=== PATIENT | male | born 1980 | race Caucasian/White ===

== ENCOUNTER 2020-08-13 08:00 | Outpatient (CLI) | payer OTHER ==
[2020-08-13 17:14] LABS: BASOPHILS % (AUTO) 0.6 %; EOSINOPHILS # (AUTO) 0.1 10^3/uL (0.0-0.7); EOSINOPHILS % (AUTO) 2.3 %; HGB - HEMOGLOBIN 14.5 g/dL (14.0-18.0); LYMPHOCYTES % (AUTO) 29.4 %; MEAN CORPUSCULAR HEMOGLOBIN 32.7 pg (27.0-31.0); MEAN CORPUSCULAR HGB CONC 35.3 g/dL (32.0-36.0); MEAN CORPUSCULAR VOLUME 92.6 fL (80.0-94.0); MEAN PLATELET VOLUME 9.9 fL (7.4-11.4); MONOCYTES # (AUTO) 0.5 10^3/uL (0.0-1.0); MONOCYTES % (AUTO) 13.1 %; NEUTROPHILS # (AUTO) 1.9 10^3/uL (1.5-6.6); NEUTROPHILS % (AUTO) 54.6 %; PLT - PLATELET COUNT 152 10^3/uL (130-450); RED BLOOD COUNT 4.44 10^6/uL (4.70-6.10); RED CELL DISTRIBUTION WIDTH 12.4 % (12.0-15.0); WHITE BLOOD COUNT 3.4 x10^3/uL (4.8-10.8)
[2020-08-13 17:41] LABS: ALBUMIN 3.1 g/dL (3.2-5.5); ALBUMIN/GLOBULIN RATIO 1.2 (1.0-2.2); CALCIUM 7.9 mg/dL (8.5-10.3); CREATININE 0.9 mg/dL (0.6-1.2); TOTAL PROTEIN 5.6 g/dL (6.7-8.2)
== END 2020-08-13 23:59 | disposition home or self-care (01) ==
LOC: LAB.S 08:00
PROVIDERS: ATTEND Physician Assistant Medical
DX: R61 Generalized hyperhidrosis (principal); R53.83 Other fatigue; Z20.828 Contact with and (suspected) exposure to other viral communicable diseases
CPT/HCPCS: 36415; 80053; 84443; 85025; 87275; 87276

== ENCOUNTER 2020-08-17 12:58 | Outpatient (CLI) | payer OTHER ==
[2020-08-18 13:29] LABS: HEPATITIS B SURFACE ANTIGEN NON-REACTIVE (NON-REACTIVE); HEPATITIS C ANTIBODY NON-REACTIVE (NON-REACTIVE)
== END 2020-08-17 12:59 | disposition home or self-care (01) ==
LOC: LAB.S 12:58
PROVIDERS: ATTEND Physician Assistant Medical
DX: R94.5 Abnormal results of liver function studies (principal); R53.83 Other fatigue; R61 Generalized hyperhidrosis
CPT/HCPCS: 36415; 86709; 86803; 87340

== ENCOUNTER 2020-08-18 17:19 | Emergency (ER) | payer OTHER ==
[2020-08-18 17:51] LABS: BASOPHILS % (AUTO) 0.7 %; EOSINOPHILS % (AUTO) 0.5 %; HGB - HEMOGLOBIN 15.4 g/dL (14.0-18.0); LYMPHOCYTES # (AUTO) 0.9 10^3/uL (1.5-3.5); LYMPHOCYTES % (AUTO) 22.2 %; MEAN CORPUSCULAR HEMOGLOBIN 31.6 pg (27.0-31.0); MEAN CORPUSCULAR HGB CONC 33.3 g/dL (32.0-36.0); MEAN CORPUSCULAR VOLUME 94.9 fL (80.0-94.0); MEAN PLATELET VOLUME 8.9 fL (7.4-11.4); MONOCYTES # (AUTO) 0.8 10^3/uL (0.0-1.0); MONOCYTES % (AUTO) 19.1 %; NEUTROPHILS # (AUTO) 2.4 10^3/uL (1.5-6.6); NEUTROPHILS % (AUTO) 57.3 %; PLT - PLATELET COUNT 207 10^3/uL (130-450); RED BLOOD COUNT 4.88 10^6/uL (4.70-6.10); RED CELL DISTRIBUTION WIDTH 13.1 % (12.0-15.0); WHITE BLOOD COUNT 4.2 x10^3/uL (4.8-10.8)
[2020-08-18 17:57] LABS: INR 1.5 (0.8-1.2); PT - PROTHROMBIN TIME 16.1 secs (9.9-12.6)
--- NOTE | 2020-08-18 17:59 | ED Physician Documentation ---
History of Present Illness - Stated complaint Stated Complaint: FEVER,ABD PX - Chief complaint Chief Complaint: Abd Pain - History obtained from History obtained from: Patient, Family - History of Present Illness Timing: Prior to arrival - Additonal information Additional information: 40-year-old male who was requested to come to the emergency department by his primary care physician for evaluation of his hepatitis A. About 10 days ago began to develop significant fatigue, malais,e low-grade fevers, have myalgias and night sweats. Initially he presented to an urgent care clinic where influenza and Covid testing was negative. However he failed to improve and his primary care doctor ordered hepatitis testing and he did test positive for hepatitis A. He denies any recent travel but did eat out a taco truck about a week and a half before his symptoms began. He reports mild headache, no dysuria urgency or frequency. He denies nausea or vomiting. He reports that he has pain in his epigastrium and has lost his appetite. Both he and his are very worried as he has begun to develop a mild jaundice. He denies any pertinent past medical history. No history of injection drug use. He is a social drinker. He takes no prescribed medications. Review of Systems Constitutional: reports: Fever, Myalgias, Fatigue, Sweats Eyes: reports: Reviewed and negative Ears: reports: Reviewed and negative Nose: reports: Reviewed and negative Throat: reports: Reviewed and negative Cardiac: denies: Chest pain / pressure, Palpitations Respiratory: denies: Dyspnea, Cough, Hemoptysis GI: reports: Abdominal Pain. denies: Nausea, Vomiting, Constipation, Diarrhea, Hematemesis, Bloody / black stool : reports: Other (dark colored urine). denies: Dysuria, Frequency Skin: denies: Rash Musculoskeletal: denies: Joint pain, Extremity swelling Neurologic: denies: Generalized weakness, Near syncope, Syncope, Seizure, Altered mental status, Headache, LOC PD PAST MEDICAL HISTORY - Present Medications Home Medications: Ambulatory Orders Medication Instructions Recorded Confirmed No Known Home Medications 08/18/20 08/18/20 - Allergies Allergies/Adverse Reactions: Allergies Allergy/AdvReac Type Severity Reaction Status Date / Time No Known Drug Allergies Allergy Verified 08/18/20 17:46 PD ED PE EXPANDED - General General: Alert, No acute distress, Well developed/nourished - HEENT HEENT: PERRL, EOMI - Eyes Eyes: Scleral icterus (mild) - Neck Neck: Supple w/out meningeal sx. No: Adenopathy - Cardiac Cardiac: Regular Rate, Regular Rhythm, Normal pulses, Radial strong equal, Cap refill < 2 sec - Respiratory Respiratory: Clear to ausultation vandana. No: Distress, Labored, Accessory mm use - Abdomen Abdomen: Normal Bowel sounds, Epigastric (Very mild epigastric tenderness without rebound or guarding. No hepatomegaly noted on exam. No right upper quadrant tenderness. Negative Dyer's.). No: Rebound, Guarding, Hepatomegaly - Derm Derm: Jaundiced (mild jaundice). No: Rash - Extremities Extremities: Normal. No: Pedal edema bilateral, Right calf TTP/cord, Left calf TTP/cord - Neuro Neuro: Alert and Oriented X 3, CNII-XII intact, Normal gait, Normal finger nose, Normal speech - GCS Eye Opening: Spontaneous Motor: Obeys Commands Verbal: Oriented Total: 15 Results - Vitals Vitals: Vital Signs - 24 hr 08/18/20 17:22 Temperature 36.8 C Heart Rate 56 L Respiratory 16 Rate Blood Pressure 132/74 H O2 Saturation 99 Oxygen O2 Source Room air - Labs Labs: Laboratory Tests 08/18/20 08/18/20 08/18/20 17:40 17:40 17:40 WBC 4.2 L RBC 4.88 Hgb 15.4 Hct 46.3 MCV 94.9 H MCH 31.6 H MCHC 33.3 RDW 13.1 Plt Count 207 MPV 8.9 Neut # (Auto) 2.4 Lymph # (Auto) 0.9 L Iron # (Auto) 0.8 Eos # (Auto) 0.0 Baso # (Auto) 0.0 Absolute Nucleated RBC 0.00 Nucleated RBC % 0.0 PT 16.1 H INR 1.5 H APTT 29.5 Sodium 135 Potassium 4.1 Chloride 98 L Carbon Dioxide 28 Anion Gap 9.0 BUN 8 Creatinine 0.8 Estimated GFR (MDRD) 107 Glucose 94 Lactic Acid Calcium 8.1 L Total Bilirubin 6.3 H AST 1796 H ALT 3828 H Alkaline Phosphatase 191 H Total Protein 6.3 L Albumin 3.3 Globulin 3.0 Albumin/Globulin Ratio 1.1 Lipase 62 H 08/18/20 17:40 WBC RBC Hgb Hct MCV MCH MCHC RDW Plt Count MPV Neut # (Auto) Lymph # (Auto) Iron # (Auto) Eos # (Auto) Baso # (Auto) Absolute Nucleated RBC Nucleated RBC % PT INR APTT Sodium Potassium Chloride Carbon Dioxide Anion Gap BUN Creatinine Estimated GFR (MDRD) Glucose Lactic Acid 0.9 Calcium Total Bilirubin AST ALT Alkaline Phosphatase Total Protein Albumin Globulin Albumin/Globulin Ratio Lipase PD MEDICAL DECISION MAKING - ED course Complexity details: reviewed results, d/w patient, d/w family ED course: -year-old male was sent to the emergency department for reevaluation of his recent diagnosis of hepatitis A. For about 10 days he has had malaise fatigue night sweats and lack of appetite. He has begun to develop mild jaundice. On exam though mildly jaundiced he does otherwise appear well. He has no fever here his vital signs are normal. His abdominal exam was relatively reassuring. No hepatomegaly was appreciated. Only mild epigastric tenderness without guarding or rebound. He has no focal neuro findings consistent with encephalitis. Abdominal imaging defered - On laboratory exam we do note a marked rise in his liver function test. His T bili is now 6.3. However this is the expected course with hepatitis A. I did spend an extensive amount of time with the patient and his in the room discussing hepatitis A. We discussed this typically self-limiting and there is no treatment other than supportive care. He will continue to follow-up with his primary care provider. I have encouraged fluids at home for hydration. Emergent return precautions discussed for worsening fevers, suddenly severe abdominal pain syncope bloody stools. Departure - Departure Disposition: 01 Home, Self Care Clinical Impression: Hepatitis A Qualifiers: Hepatic coma status: without hepatic coma Qualified Code(s): B15.9 - Hepatitis A without hepatic coma Condition: Stable Record reviewed to determine appropriate education?: Yes Instructions: Hepatitis A Infec Follow-Up: Andrei Johnson MD [Primary Care Provider] - Within 3 Days Comments: I do hope that you are feeling better soon. However the labs today are consistent with the natural course of hepatitis A infection. Unfortunately there is no medication or treatment that makes this better. Typically the symptoms persist for 2 to 4 weeks before they begin to improve. I do recommend frequent sips of liquid, broth or water at home to maintain hydration. I would also recommend that you eat small bits of food or snacks frequently. If at any point you develop suddenly severe abdominal pain, noticed that you have bruising or bleeding in your gums, have black or tarry stools, you are acting abnormally or become excessively sleepy please return immediately to the emergency department. Schedule close follow-up with your primary care provider for next week to discuss longer-term monitoring of your hepatitis A.
[2020-08-18 18:04] LABS: PARTIAL THROMBOPLASTIN TIME 29.5 secs (24.9-33.3)
[2020-08-18 18:46] LABS: ALBUMIN 3.3 g/dL (3.2-5.5); ALBUMIN/GLOBULIN RATIO 1.1 (1.0-2.2); BILIRUBIN,TOTAL 6.3 mg/dL (0.2-1.0); CALCIUM 8.1 mg/dL (8.5-10.3); CREATININE 0.8 mg/dL (0.6-1.2); TOTAL PROTEIN 6.3 g/dL (6.7-8.2)
[2020-08-18 19:05] VITALS: BP 124/47
== END 2020-08-18 19:14 | disposition home or self-care (01) ==
LOC: ED 17:19
DX: B15.9 Hepatitis A without hepatic coma (principal)
CPT/HCPCS: 36415; 80053; 83605; 83690; 85025; 85610; 85730; 87040; 99283; 99284

== ENCOUNTER 2020-08-19 12:13 | Emergency (ER) | payer OTHER ==
[2020-08-19 13:01] LABS: GLUCOSE, URINE (UA) NEGATIVE (NEGATIVE); KETONES,URINE (UA) NEGATIVE (NEGATIVE); LEUKOCYTE ESTERASE, URINE NEGATIVE (NEGATIVE); NITRITE,URINE NEGATIVE (NEGATIVE); OCCULT BLOOD,URINE NEGATIVE (NEGATIVE); PH,URINE 7.5 PH (5.0-7.5); PROTEIN,URINE NEGATIVE (NEGATIVE); UROBILINOGEN,URINE 0.2 (NORMAL) E.U./dL (NORMAL)
[2020-08-19] MEDS ORDERED: SODIUM CHLORIDE 0.9% 1,000 ML IV STA ×2 (13:01→15:10)
--- NOTE | 2020-08-19 13:01 | ED Physician Documentation ---
History of Present Illness - Stated complaint Stated Complaint: PAIN - Chief complaint Chief Complaint: Abd Pain - History obtained from History obtained from: Patient - History of Present Illness Timing: How many days ago (12) Pain level max: 3 Pain level now: 2 - Additonal information Additional information: Patient is a 40-year-old male who was diagnosed with hepatitis a approximately a week ago. He states he has had symptoms for about 2 weeks. He states that he was coming in for an ultrasound today, but is generally feeling weak and unwell. Came to the emergency department instead. Nothing makes it better or worse. Had a temperature of 100.5 today. No nausea or vomiting. No diarrhea or constipation. Was seen here last night for elevated LFTs. Review of Systems Ten Systems: 10 systems reviewed and negative Constitutional: reports: Fever. denies: Chills Throat: denies: Sore throat Cardiac: denies: Chest pain / pressure Respiratory: denies: Dyspnea, Cough GI: reports: Nausea, Vomiting : denies: Dysuria, Frequency, Hesitancy, Now EGA Skin: denies: Rash Musculoskeletal: denies: Neck pain, Back pain Neurologic: denies: Headache PD PAST MEDICAL HISTORY - Past Medical History Past Medical History: No - Past Surgical History Past Surgical History: No - Present Medications Home Medications: Ambulatory Orders Medication Instructions Recorded Confirmed Oxycodone HCl 5 - 10 mg PO Q6H PRN #20 tablet 08/19/20 - Allergies Allergies/Adverse Reactions: Allergies Allergy/AdvReac Type Severity Reaction Status Date / Time No Known Drug Allergies Allergy Verified 08/18/20 17:46 - Social History Does the pt smoke?: No Smoking Status: Never smoker Does the pt drink ETOH?: Yes Does the pt have substance abuse?: No PD ED PE NORMAL - Vitals Vital signs reviewed: Yes - General General: Alert and oriented X 3, No acute distress, Other (mild jaundice) - HEENT HEENT: PERRL - Neck Neck: Supple, no meningeal sign - Cardiac Cardiac: RRR, Strong equal pulses - Respiratory Respiratory: No respiratory distress, Clear bilaterally - Abdomen Abdomen: Soft, Non tender, Non distended - Derm Derm: Warm and dry, No rash - Extremities Extremities: No edema, No calf tenderness / cord - Neuro Neuro: Alert and oriented X 3 - Psych Psych: Normal mood, Normal affect Results - Vitals Vitals: Vital Signs - 24 hr 08/19/20 08/19/20 12:31 16:23 Temperature 36.9 C 37.6 C H Heart Rate 62 66 Respiratory 18 16 Rate Blood Pressure 107/53 L 102/50 L O2 Saturation 98 99 Oxygen O2 Source Room air - Labs Labs: Laboratory Tests 08/19/20 08/19/20 08/19/20 12:45 13:05 13:05 WBC 4.4 L RBC 4.60 L Hgb 14.6 Hct 43.1 MCV 93.7 MCH 31.7 H MCHC 33.9 RDW 12.9 Plt Count 199 MPV 9.3 Neut # (Auto) 2.5 Lymph # (Auto) 1.1 L [place] # (Auto) 0.8 Eos # (Auto) 0.0 Baso # (Auto) 0.0 Absolute Nucleated RBC 0.00 Nucleated RBC % 0.0 PT INR APTT Sodium 135 Potassium 4.4 Chloride 99 L Carbon Dioxide 27 Anion Gap 9.0 BUN 10 Creatinine 0.7 Estimated GFR (MDRD) 124 Glucose 92 Calcium 8.1 L Total Bilirubin 8.1 H Direct Bilirubin 5.3 H AST 2194 H ALT 4052 H Alkaline Phosphatase 173 H Total Protein 5.8 L Albumin 2.9 L Globulin 2.9 Albumin/Globulin Ratio 1.0 Lipase 46 Urine Color DARK YELLOW Urine Clarity CLEAR Urine pH 7.5 Ur Specific [place] 1.020 Urine Protein NEGATIVE Urine Glucose (UA) NEGATIVE Urine Ketones NEGATIVE Urine Occult Blood NEGATIVE Urine Nitrite NEGATIVE Urine Bilirubin LARGE H Urine Urobilinogen 0.2 (NORMAL) Ur Leukocyte Esterase NEGATIVE Ur Microscopic Review NOT INDICATED Urine Culture Comments NOT INDICATED 08/19/20 13:05 WBC RBC Hgb Hct MCV MCH MCHC RDW Plt Count MPV Neut # (Auto) Lymph # (Auto) [place] # (Auto) Eos # (Auto) Baso # (Auto) Absolute Nucleated RBC Nucleated RBC % PT 17.5 H INR 1.6 H APTT 30.7 Sodium Potassium Chloride Carbon Dioxide Anion Gap BUN Creatinine Estimated GFR (MDRD) Glucose Calcium Total Bilirubin Direct Bilirubin AST ALT Alkaline Phosphatase Total Protein Albumin Globulin Albumin/Globulin Ratio Lipase Urine Color Urine Clarity Urine pH Ur Specific [place] Urine Protein Urine Glucose (UA) Urine Ketones Urine Occult Blood Urine Nitrite Urine Bilirubin Urine Urobilinogen Ur Leukocyte Esterase Ur Microscopic Review Urine Culture Comments - Rads (name of study) RUQ US Radiology: Prelim report reviewed, EMP read contemporaneously, See rad report CT abd/pelvis Radiology: Prelim report reviewed, EMP read contemporaneously, See rad report (The gallbladder is contracted. However, there is marked gallbladder wall thickening and edema. Consider acute cholecystitis. Comment: Nuclear medicine HIDA study may be helpful. ) PD MEDICAL DECISION MAKING - ED course Complexity details: reviewed results, re-evaluated patient, considered differential, d/w patient, d/w family, d/w field sales consultant ED course: 40-year-old male with hepatitis A. He has increasing liver function tests. Did have a slight fever this morning. No significant tenderness on exam. Pain well controlled in the emergency department. Feels better after IV fluids and is tolerating p.o. without difficulty. Discussed the case with Dr[facility] Mcmahan[facility] who states that she has not cared for many hepatitis A patients in the past, but has seen them observed for 1-2 nights in the hospital until LFTs trending down. She has no specific recommendations in this case. Recommend that I contact hepatology. I [facility], Dr. Colon, he recommends every other day outpatient lab draws. As long as the INR stays below 2 and the patient is well-appearing, the labs can be trended. If the INR is above 2, the patient develops more fevers or is worsening, reconsultation should be obtained. Discussed the case with NABIL Acosta who is on-call for Dr. Johnson, she will put labs in for Saturday for a blood draw. Patient is well-appearing, nontoxic. Afebrile here. Patient and family counseled regarding signs and symptoms for which I believe and urgent re-evaluation would be necessary. Patient with good understanding of and agreement to plan and is comfortable going home at this time This document was made in part using voice recognition software. While efforts are made to proofread this document, sound alike and grammatical errors may occur. Right upper quadrant ultrasound Sonographic appearance of the liver concerning for hepatitis. Starry nadeem and hypoechoic coarsened echotexture. Gallbladder is contracted limiting evaluation, however there appears to be gallbladder wall thickening and surrounding increased echogenicity, findings due to inflammatory change. Suspect intraluminal sludge. No biliary ductal dilatation is identified. No hydronephrosis of the right kidney Departure - Departure Disposition: Home, Self Care Clinical Impression: Hepatitis A Qualifiers: Hepatic coma status: without hepatic coma Qualified Code(s): B15.9 - Hepatitis A without hepatic coma Condition: Good Instructions: Hepatitis A Infec Follow-Up: Andrei Johnson MD [Primary Care Provider] - Within 3 Days Prescriptions: Oxycodone HCl 5 - 10 mg PO Q6H PRN #20 tablet PRN Reason: pain Comments: Return if you worsen including uncontrolled pain, worsening fevers or other new or worsening changes. You need to have your blood drawn every 2 days until your liver test start to improve. I spoke with Dr. Colon from hepatology today. You should have a CBC, PT with INR and CMP. I attempted to contact Dr. Johnson today, but he had already left the office for the day. Do not drink alcohol or drive while on narcotic pain medicine. Note that many narcotic pain relievers also contain tylenol/acetaminophen. Please ensure that your total dose of acetaminophen from all sources does not exceed 3 grams (3000mg) per day. You may constipated on this medication, take a stool softener such as "Colace" twice a day while you are on it. Also recommend a [id number] laxative such as senna or MiraLAX any day that you do not have a bowel movement. If you received narcotic pain medication in the emergency department, do not drive or operate machinery for the next 24 hours. Discharge Date/Time: 08/19/20 17:03
[2020-08-19 13:02] LABS: BILIRUBIN,URINE LARGE (NEGATIVE); CLARITY,URINE CLEAR (CLEAR); ICTOTEST,URINE POSITIVE
[2020-08-19 13:18] LABS: BASOPHILS % (AUTO) 0.5 %; EOSINOPHILS % (AUTO) 0.5 %; HGB - HEMOGLOBIN 14.6 g/dL (14.0-18.0); LYMPHOCYTES # (AUTO) 1.1 10^3/uL (1.5-3.5); LYMPHOCYTES % (AUTO) 25.3 %; MEAN CORPUSCULAR HEMOGLOBIN 31.7 pg (27.0-31.0); MEAN CORPUSCULAR HGB CONC 33.9 g/dL (32.0-36.0); MEAN CORPUSCULAR VOLUME 93.7 fL (80.0-94.0); MEAN PLATELET VOLUME 9.3 fL (7.4-11.4); MONOCYTES # (AUTO) 0.8 10^3/uL (0.0-1.0); MONOCYTES % (AUTO) 18.1 %; NEUTROPHILS # (AUTO) 2.5 10^3/uL (1.5-6.6); NEUTROPHILS % (AUTO) 55.4 %; PLT - PLATELET COUNT 199 10^3/uL (130-450); RED CELL DISTRIBUTION WIDTH 12.9 % (12.0-15.0); WHITE BLOOD COUNT 4.4 x10^3/uL (4.8-10.8)
[2020-08-19 13:24] LABS: INR 1.6 (0.8-1.2); PT - PROTHROMBIN TIME 17.5 secs (9.9-12.6)
[2020-08-19 13:31] LABS: PARTIAL THROMBOPLASTIN TIME 30.7 secs (24.9-33.3)
[2020-08-19 13:59] LABS: ALBUMIN 2.9 g/dL (3.2-5.5); BILIRUBIN,DIRECT 5.3 mg/dL (0.1-0.5); BILIRUBIN,TOTAL 8.1 mg/dL (0.2-1.0); CALCIUM 8.1 mg/dL (8.5-10.3); CREATININE 0.7 mg/dL (0.6-1.2); TOTAL PROTEIN 5.8 g/dL (6.7-8.2)
[2020-08-19] MEDS ORDERED: IOVERSOL 320 100 ML VIAL IVP ONE ×3 (14:07→15:58)
--- NOTE | 2020-08-19 15:39 | CT Report ---
PROCEDURE: Abdomen/Pelvis W INDICATIONS: abd pain, hep A CONTRAST: IV CONTRAST: Optiray 320 ml: 100 PO CONTRAST: *NO PO CONTRAST TECHNIQUE: After the administration of intravenous contrast, 5 mm thick sections acquired from the diaphragms to the symphysis. 5 mm thick coronal and sagittal reformats were acquired. For radiation dose reducti on, the following was used: automated exposure control, adjustment of mA and/or kV according to dieudonne ent size. COMPARISON: Right upper quadrant ultrasound dated 08/19/2020. FINDINGS: Image quality: Excellent. ABDOMEN: Lung bases: Lung bases are clear. Heart size is normal. Solid organs: Liver and spleen are normal in size and enhancement. Gallbladder is contracted. Howev er, there is marked gallbladder wall thickening and edema. Biliary system is non dilated. Pancreas enhances normally. No adrenal nodules. Kidneys demonstrate normal size and enhancement, without hyd ronephrosis. Peritoneum and bowel: Bowel loops demonstrate normal wall thickness and caliber. Small amount of chilango e fluid in the pelvis. Nodes and vessels: No retroperitoneal or mesenteric adenopathy by size criteria. Shotty periportal and periaortic adenopathy. Aorta and inferior vena cava are normal in size. Miscellaneous: No ventral hernias. PELVIS: Genitourinary: Bladder is decompressed. Miscellaneous: No inguinal hernias or adenopathy. Bones: No suspicious bony lesions. No vertebral body compression fractures. IMPRESSION: The gallbladder is contracted. However, there is marked gallbladder wall thickening and edema. Consider acute cholecystitis. Comment: Nuclear medicine HIDA study may be helpful. Reviewed by: Sanjay Guzmán MD on 08/19/2020 3:37 PM PDT Approved by: Sanjay Guzmán MD on 08/19/2020 3:37 PM PDT Station ID: [id number]
[2020-08-19] MEDS ORDERED: MORPHINE 2 MG/ML CARPUJECT IVP STA (15:43)
[2020-08-19 16:24] VITALS: BP 102/50
--- NOTE | 2020-08-20 10:45 | Ultrasound Report ---
PROCEDURE: Abdomen Limited INDICATIONS: RUQ pain, + hep A TECHNIQUE: Real-time scanning was performed of the abdominal and retroperitoneal organs, with image documentatio n. COMPARISON: None. FINDINGS: Liver: Normal size. Hypoechoic coarsened in echotexture. Increased conspicuity of the portal triads, starry nadeem appearance. Main portal vein demonstrates expected hepatopedal flow. Gallbladder: Contracted limiting evaluation. The gallbladder wall is thickened measuring approximatel y 7 mm. There appears to be sludge within the gallbladder lumen. Increased echogenicity surrounding t he gallbladder. Negative sonographic Dyer sign. Biliary ducts: Intrahepatic bile ducts are non-dilated. Extrahepatic bile duct caliber measures 2 m m. Normal is 6-7 mm or less in diameter, or 10 mm or less post-cholecystectomy. Pancreas: Visualized portions of the pancreas are sonographically normal. Right kidney: Measures 11 cm. Cortex 1.37 m. No hydronephrosis. IMPRESSION: 1. Sonographic appearance of the liver is concerning for hepatitis. Starry nadeem and hypoechoic coarsen ed echotexture. 2. Gallbladder is contracted limiting evaluation. However, there appears to be a bladder wall thicken ing and surrounding increased echogenicity. Findings could be due to inflammatory change. Suspect int raluminal sludge. 3. No biliary ductal dilatation is identified. 4. No hydronephrosis of the right kidney. Reviewed by: Rashard Holder MD on 08/19/2020 2:09 PM PDT Approved by: Rashard Holder MD on 08/19/2020 2:09 PM PDT Station ID: [id number]
== END 2020-08-19 17:03 | disposition home or self-care (01) ==
LOC: ED 12:13
DX: B15.9 Hepatitis A without hepatic coma (principal); K82.9 Disease of gallbladder, unspecified
CPT/HCPCS: 36415; 74177; 76705; 80053; 81003; 82248; 83690; 85025; 85610; 85730; 96374; 99284; 99285; Q9967; 81001; 87086

== ENCOUNTER 2020-08-21 13:13 | Outpatient (CLI) | payer OTHER ==
[2020-08-21 13:53] LABS: BASOPHILS % (AUTO) 0.3 %; EOSINOPHILS % (AUTO) 0.9 %; HGB - HEMOGLOBIN 14.6 g/dL (14.0-18.0); LYMPHOCYTES # (AUTO) 1.1 10^3/uL (1.5-3.5); LYMPHOCYTES % (AUTO) 32.2 %; MEAN CORPUSCULAR HEMOGLOBIN 31.5 pg (27.0-31.0); MEAN CORPUSCULAR HGB CONC 33.1 g/dL (32.0-36.0); MEAN CORPUSCULAR VOLUME 95.2 fL (80.0-94.0); MONOCYTES # (AUTO) 0.5 10^3/uL (0.0-1.0); MONOCYTES % (AUTO) 13.7 %; NEUTROPHILS # (AUTO) 1.8 10^3/uL (1.5-6.6); NEUTROPHILS % (AUTO) 52.6 %; PLT - PLATELET COUNT 182 10^3/uL (130-450); RED BLOOD COUNT 4.63 10^6/uL (4.70-6.10); RED CELL DISTRIBUTION WIDTH 13.2 % (12.0-15.0); WHITE BLOOD COUNT 3.4 x10^3/uL (4.8-10.8)
[2020-08-21 14:02] LABS: INR 1.6 (0.8-1.2); PT - PROTHROMBIN TIME 17.2 secs (9.9-12.6)
[2020-08-21 14:34] LABS: ALBUMIN 2.5 g/dL (3.2-5.5); ALBUMIN/GLOBULIN RATIO 0.9 (1.0-2.2); BILIRUBIN,TOTAL 8.9 mg/dL (0.2-1.0); CALCIUM 7.8 mg/dL (8.5-10.3); CREATININE 0.8 mg/dL (0.6-1.2); TOTAL PROTEIN 5.4 g/dL (6.7-8.2)
== END 2020-08-21 13:14 | disposition home or self-care (01) ==
LOC: LAB 13:13
PROVIDERS: ATTEND Physician Assistant Medical
DX: B15.9 Hepatitis A without hepatic coma (principal)
CPT/HCPCS: 36415; 80053; 85025; 85610

== ENCOUNTER 2020-08-22 14:13 | Outpatient (CLI) | payer OTHER ==
[2020-08-22 14:39] LABS: BASOPHILS % (AUTO) 0.7 %; EOSINOPHILS % (AUTO) 0.3 %; HGB - HEMOGLOBIN 14.4 g/dL (14.0-18.0); LYMPHOCYTES # (AUTO) 0.9 10^3/uL (1.5-3.5); LYMPHOCYTES % (AUTO) 31.4 %; MEAN CORPUSCULAR HEMOGLOBIN 31.9 pg (27.0-31.0); MEAN CORPUSCULAR HGB CONC 33.6 g/dL (32.0-36.0); MEAN CORPUSCULAR VOLUME 95.1 fL (80.0-94.0); MEAN PLATELET VOLUME 8.7 fL (7.4-11.4); MONOCYTES # (AUTO) 0.4 10^3/uL (0.0-1.0); MONOCYTES % (AUTO) 12.7 %; NEUTROPHILS # (AUTO) 1.6 10^3/uL (1.5-6.6); NEUTROPHILS % (AUTO) 54.6 %; PLT - PLATELET COUNT 184 10^3/uL (130-450); RED BLOOD COUNT 4.51 10^6/uL (4.70-6.10); RED CELL DISTRIBUTION WIDTH 13.1 % (12.0-15.0)
[2020-08-22 15:02] LABS: INR 1.5 (0.8-1.2); PT - PROTHROMBIN TIME 16.3 secs (9.9-12.6)
[2020-08-22 15:09] LABS: ALBUMIN 2.5 g/dL (3.2-5.5); ALBUMIN/GLOBULIN RATIO 0.9 (1.0-2.2); BILIRUBIN,TOTAL 9.1 mg/dL (0.2-1.0); CALCIUM 7.9 mg/dL (8.5-10.3); CREATININE 0.9 mg/dL (0.6-1.2); TOTAL PROTEIN 5.4 g/dL (6.7-8.2)
[2020-08-22 15:19] LABS: PLATELET ESTIMATE, MANUAL NORMAL (130-450,000) (NORMAL); PLATELET MORPHOLOGY NORMAL APPEARANCE (NORMAL); RBC MORPHOLOGY (MULTIPLE) NORMAL APPEARANCE (NORMAL)
== END 2020-08-22 14:14 | disposition home or self-care (01) ==
LOC: LAB 14:13
PROVIDERS: ATTEND Internal Medicine
DX: B15.9 Hepatitis A without hepatic coma (principal); R17 Unspecified jaundice
CPT/HCPCS: 36415; 80053; 83690; 85025; 85610

== ENCOUNTER 2020-08-24 11:52 | Outpatient (CLI) | payer OTHER ==
[2020-08-24 12:10] LABS: BASOPHILS % (AUTO) 0.5 %; EOSINOPHILS % (AUTO) 0.8 %; HGB - HEMOGLOBIN 14.5 g/dL (14.0-18.0); LYMPHOCYTES # (AUTO) 1.1 10^3/uL (1.5-3.5); LYMPHOCYTES % (AUTO) 29.4 %; MEAN CORPUSCULAR HEMOGLOBIN 31.3 pg (27.0-31.0); MEAN CORPUSCULAR HGB CONC 32.9 g/dL (32.0-36.0); MONOCYTES # (AUTO) 0.4 10^3/uL (0.0-1.0); MONOCYTES % (AUTO) 11.9 %; NEUTROPHILS # (AUTO) 2.1 10^3/uL (1.5-6.6); NEUTROPHILS % (AUTO) 57.1 %; PLT - PLATELET COUNT 215 10^3/uL (130-450); RED BLOOD COUNT 4.64 10^6/uL (4.70-6.10); RED CELL DISTRIBUTION WIDTH 13.2 % (12.0-15.0); WHITE BLOOD COUNT 3.7 x10^3/uL (4.8-10.8)
[2020-08-24 12:16] LABS: INR 1.3 (0.8-1.2); PT - PROTHROMBIN TIME 13.9 secs (9.9-12.6)
[2020-08-24 12:31] LABS: ALBUMIN 2.7 g/dL (3.2-5.5); ALBUMIN/GLOBULIN RATIO 0.8 (1.0-2.2); BILIRUBIN,TOTAL 10.8 mg/dL (0.2-1.0); CALCIUM 8.6 mg/dL (8.5-10.3); TOTAL PROTEIN 6.2 g/dL (6.7-8.2)
== END 2020-08-24 11:53 | disposition home or self-care (01) ==
LOC: LAB 11:52
PROVIDERS: ATTEND Internal Medicine
DX: B15.9 Hepatitis A without hepatic coma (principal); R17 Unspecified jaundice
CPT/HCPCS: 36415; 80053; 85025; 85610

== ENCOUNTER 2020-08-25 16:49 | Outpatient (CLI) | payer OTHER ==
[2020-08-25] MEDS ORDERED: GADOBUTROL 7.5 MMOL/7.5 ML VIAL ONE (17:32)
[2020-08-25] MEDS ORDERED: GADOBUTROL 7.5 MMOL/7.5 ML VIAL IVP ONE (19:36)
--- NOTE | 2020-09-01 09:55 | MRI Report ---
PROCEDURE: Abdomen W/O INDICATIONS: GALLBLADDER SLUDGE CONTRAST: None administered TECHNIQUE: Multisequence multiplanar MR images of the abdomen obtained without the use of intravenous contrast. Specific sequences obtained include but are not limited to: coronal ultra fast spin echo, axial 2D sp oiled gradient echo in- and [id number]; axial breath-hold T2 fast spin echo. COMPARISON: CT abdomen and pelvis 08/19/2020 FINDINGS: Image quality: Excellent. Lung bases: No basal pleural effusions. Heart size is normal. Gallbladder and biliary system: The gallbladder is very tightly contracted, almost completely collaps ed. The gallbladder wall measures approximately 2-3 mm in thickness. There is small to moderate volum e pericholecystic fluid. There is no gallstone identified in the gallbladder or in the biliary ducts. No intrahepatic or extrahepatic biliary ductal dilatation. Liver and spleen: Borderline splenomegaly, measuring approximately 13.5 cm in greatest craniocaudal a nd transverse dimension. No findings of steatosis, cirrhosis, or liver mass. Patient hepatic and port al veins. Pancreas: Normal T1 signal intensity of the pancreas. No peripancreatic fluid or pancreatic ductal di latation. Kidneys and adrenal glands: No hydronephrosis or other significant finding of the kidneys. No adrenal gland nodule or mass. Nodes and vessels: No retroperitoneal or mesenteric adenopathy by size criteria. Aorta and inferior vena cava are normal in size. Bowel and peritoneum: Unenhanced bowel loops are normal in caliber. No free fluid. Bones and soft tissues: No ventral hernias. Bone marrow is normal in overall signal. IMPRESSION: Contracted gallbladder with small volume pericholecystic fluid. Findings would not be consistent with acute cholecystitis. The pericholecystic fluid could be related to the history of hepatitis, althoug h this is not definitive. Chronic cholecystitis could account for this finding, also. This would requ moises a nuclear medicine hepatobiliary scan to further evaluate with imaging, which would also evaluate for biliary/gallbladder dyskinesia. Reviewed by: Denys Beckman MD on 09/01/2020 9:53 AM PST Approved by: Denys Beckman MD on 09/01/2020 9:53 AM PST Station ID: [id number]
== END 2020-08-25 16:50 | disposition home or self-care (01) ==
LOC: DI 16:49
PROVIDERS: ATTEND Internal Medicine
DX: K82.8 Other specified diseases of gallbladder (principal)
CPT/HCPCS: 74181; A9585